=== PATIENT | female | born 1980 | race Caucasian/White ===

== ENCOUNTER 2018-08-08 23:46 | Emergency (ER) | payer MEDICAID, SELFPAY ==
[~2018-08-08] VITALS: Ht 154.9 cm; Wt 68.0 kg
[2018-08-08 23:47] VITALS: BP 122/83
[2018-08-09] MEDS ORDERED: DEXAMETHASONE 4 MG TABLET ONE (00:23)
[2018-08-09] MEDS ORDERED: DEXAMETHASONE 4 MG TABLET PO ONE (00:30)
== END 2018-08-09 00:32 ==
LOC: ED 08-09 00:26
DX: H65.02 Acute serous otitis media, left ear (principal); J02.9 Acute pharyngitis, unspecified; F17.200 Nicotine dependence, unspecified, uncomplicated; Z88.5 Allergy status to narcotic agent
CPT/HCPCS: 99283